=== PATIENT | female | born 1990 | race Hispanic/Latino ===

== ENCOUNTER 2023-02-21 08:52 | Emergency (ER) | payer SELFPAY ==
[2023-02-21] MEDS ORDERED: Dexamethasone 4 MG TAB ONE (09:08)
[2023-02-21 10:12] LABS: SARS-CoV-2 NAA Rapid Test Not Detected (NotDetected)
== END 2023-02-21 10:37 | disposition home or self-care (01) ==
LOC: ERS 08:52
DX: J02.9 Acute pharyngitis, unspecified (principal); Z20.822 Contact with and (suspected) exposure to COVID-19
CPT/HCPCS: 87430; 99283; J8540